=== PATIENT | male | born 1960 | race Caucasian/White ===

== ENCOUNTER 2017-11-03 07:55 | Day surgery (SDC) | payer BC ==
[~2017-11-03 07:55] MED LIST: ALTACE10 MG PO; ASPIR 8181 M1 PO; ATENOLOL100 M1 NG; BACTRIM,SEPT1 TABLET PO; CRESTOR40 MG PO; FLAX OIL1000 MG PO; KEFLEX500 MG PO; LORTAB 5-325 M1 EACH PO; NAPROSYN500 MG PO; NIACIN500 MG PO; NORVASC10 MG PO; OMEGA 3 1,0001 EACH PO; TRICOR145 MG PO; ZETIA10 MG PO; ZOFRAN4 MG PO
[2017-11-03 08:13] LABS: BASOPHIL (%) 0.5 % (0-1); EOSINOPHIL (%) 1.4 % (0-5); EOSINOPHIL COUNT 0.1 K/uL (0-0.3); HEMATOCRIT 49.5 % (38.0-50.0); HEMOGLOBIN 16.7 G/DL (12.5-16.6); IMMATURE GRANULOCYTE (%) 0.5 % (0.0-0.7); LYMPHOCYTE (%) 32.6 % (15-42); LYMPHOCYTE COUNT 2.1 K/uL (1.0-2.8); MCH 30.5 PG (29.0-34.0); MCHC 33.7 G/DL (30.0-36.0); MCV 90.5 FL (86-99); MONOCYTE COUNT 0.5 K/uL (0-0.8); NEUTROPHIL COUNT 3.7 K/uL (1.8-6.4); PLATELET COUNT 173 K/uL (156-360); RBC DIS.WIDTH-CV 13.6 % (11.8-14.6); RBC DIS.WIDTH-SD 45.7 % (39-53); RED BLOOD COUNT 5.47 M/uL (4.00-5.50); WHITE BLOOD COUNT 6.5 K/uL (4.1-10.2)
[2017-11-03 08:23] LABS: PTT 29.6 SEC (25-37)
[2017-11-03 08:35] LABS: AMYLASE 44 IU/L (1-118); CHLORIDE 106 MEQ/L (99-109); POTASSIUM 3.6 MEQ/L (3.7-5.4); SODIUM 139 MEQ/L (136-147)
[2017-11-03 08:47] LABS: CREATININE 0.8 MG/DL (0.6-1.3); GFR ESTIMATE (CALCULATED) > 59 mL/min/ (58.99-99999); GLUCOSE 196 mg/dL (70-99); LIPASE 19 U/L (1.0-51.0); SERUM ETHYL ALCOHOL < 10 mg/dL; UREA NITROGEN (BUN) 12 mg/dL (9-23)
[2017-11-03 08:53] LABS: TROP-I INTERPRETATION NEGATIVE; TROPONIN-I 0.02 ng/mL (0.0-0.30)
== END 2017-11-03 13:53 | disposition short-term general hospital (02) ==
LOC: EME 07:55 → ENRESERV 08:35 → CANRESERV 08:42 → ENRESERV 08:42 → CATH 09:18
PROVIDERS: Emergency Medicine
DX: I71.01 Dissection of thoracic aorta (principal); I25.10 Atherosclerotic heart disease of native coronary artery without angina pectoris; Z95.1 Presence of aortocoronary bypass graft; I25.2 Old myocardial infarction; Z79.82 Long term (current) use of aspirin; Z79.02 Long term (current) use of antithrombotics/antiplatelets; I10 Essential (primary) hypertension; E78.5 Hyperlipidemia, unspecified; E11.9 Type 2 diabetes mellitus without complications; Z79.84 Long term (current) use of oral hypoglycemic drugs; Z87.891 Personal history of nicotine dependence
CPT/HCPCS: 80048; 81003; 82150; 83605; 83690; 84484; 85025; 85347; 85610; 85730; 86850; 86900; 86901; 87040; 93005; 99281; 99285; C1769; C1887; C1894; G0480; J0282; J1644; J2250; J2270; J2405; J3010

== ENCOUNTER 2017-11-30 08:34 | Emergency (ER) | payer OTHER ==
[~2017-11-30] VITALS: Ht 167.6 cm; Wt 110.3 kg
[2017-11-30 10:31] LABS: HEMATOCRIT 30.6 % (38.0-50.0); MCH 29.5 PG (29.0-34.0); MCHC 32.7 G/DL (30.0-36.0); MCV 90.3 FL (86-99); PLATELET COUNT 347 K/uL (156-360); RBC DIS.WIDTH-CV 13.4 % (11.8-14.6); RBC DIS.WIDTH-SD 44.5 % (39-53); RED BLOOD COUNT 3.39 M/uL (4.00-5.50); WHITE BLOOD COUNT 8.6 K/uL (4.1-10.2)
[2017-11-30 10:42] LABS: CHLORIDE 104 mEq/L (99-109); POTASSIUM 4.3 mEq/L (3.7-5.4); SODIUM 140 mEq/L (136-147)
[2017-11-30 10:43] LABS: GLUCOSE 99 mg/dL (70-99)
[2017-11-30 10:47] LABS: CREATININE 0.8 mg/dL (0.6-1.3); GFR ESTIMATE (CALCULATED) > 59 mL/min/ (58.99-99999)
[2017-11-30 10:48] LABS: UREA NITROGEN (BUN) 13 mg/dL (9-23)
[2017-11-30] MEDS ORDERED: BACTRIM,SEPT1 TABLET PO (12:49)
[2017-11-30] MEDS ORDERED: AUGMENTIN875 MG PO (12:49)
[2017-11-30 13:31] LABS: APPEARANCE CLEAR ((CLEAR)); BILIRUBIN NEGATIVE; BLOOD NEGATIVE; COLOR YELLOW ((YELLOW)); GLUCOSE (STRIP) NEGATIVE; KETONES NEGATIVE; LEUKOCYTES NEGATIVE; NITRITE NEGATIVE; PROTEIN (STRIP) NEGATIVE; SPECIFIC GRAVITY 1.031 (1.000-1.030); UCUL ADDED? NO
[2017-11-30 13:56] VITALS: BP 144/66
== END 2017-11-30 14:02 | disposition home or self-care (01) ==
LOC: EME 08:34
PROVIDERS: Nurse Practitioner Family
DX: T81.4XXA Infection following a procedure, initial encounter (principal); Z98.890 Other specified postprocedural states; Z86.79 Personal history of other diseases of the circulatory system; E11.9 Type 2 diabetes mellitus without complications; R07.89 Other chest pain; R42 Dizziness and giddiness; K40.90 Unilateral inguinal hernia, without obstruction or gangrene, not specified as recurrent; I10 Essential (primary) hypertension; E78.5 Hyperlipidemia, unspecified; Z95.1 Presence of aortocoronary bypass graft; Z86.711 Personal history of pulmonary embolism; Z87.442 Personal history of urinary calculi; Z79.82 Long term (current) use of aspirin; F17.200 Nicotine dependence, unspecified, uncomplicated
CPT/HCPCS: 74177; 80048; 81003; 83605; 85027; 87040; 87070; 87075; 87077; 87186; 87205; 99281; 99284

== ENCOUNTER → 2018-04-01 | Outpatient (CLI) | payer SELFPAY ==
[~2018-04-01] MED LIST changes: +ASPIRIN81 M2 PO; +AUGMENTIN875 MG PO; +COREG6.25 M1 PO; +COZAAR100 MG PO; +LIPITOR80 MG PO; +METFORMIN HCL500 MG PO; +NEXIUM40 MG PO; +OXAYDO5 MG PO; +PLAVIX75 MG PO
== END | disposition home or self-care (01) ==
LOC: EKG 14:00
DX: I51.7 Cardiomegaly (principal); I05.1 Rheumatic mitral insufficiency; I07.1 Rheumatic tricuspid insufficiency; I70.0 Atherosclerosis of aorta; I06.1 Rheumatic aortic insufficiency; Z98.890 Other specified postprocedural states
CPT/HCPCS: 93306